=== PATIENT | female | born 1995 | race Two or more races ===

== ENCOUNTER 2017-04-13 00:39 | Emergency (ER) | payer BC, OTHER, SELFPAY ==
[~2017-04-13] VITALS: Ht 160 cm; Wt 122.6 kg
[2017-04-13] MEDS ORDERED: SODIUM CHLORIDE 0.9% 1,000ML IVBOLUS ONE ×2 (01:30→04:00)
[2017-04-13] MEDS ORDERED: MORPHINE SULFATE 4 MG/ML, 1ML IVPush PRN (01:30)
[2017-04-13] MEDS ORDERED: PROMETHAZINE 25 MG/ML, 1ML IM ONE (01:30)
[2017-04-13] MEDS ORDERED: SODIUM CHLORIDE FLUSH 10ML SYR IVF ONE (01:30)
[2017-04-13] MEDS ORDERED: ONDANSETRON 2MG/ML, 2ML IVPush ONE (01:30)
[2017-04-13 01:51] LABS: BASOPHILS % (AUTO) 0 % (0-1); EOSINOPHILS # (AUTO) 0.16 x10^3/uL (0-0.4); EOSINOPHILS % (AUTO) 1 % (1-7); LYMPHOCYTES # (AUTO) 0.47 x10^3/uL (1-3.4); LYMPHOCYTES % (AUTO) 4 % (22-44); MD NO; MEAN CORPUSCULAR HGB CONC 34.5 g/dL (32.4-35.8); MEAN CORPUSCULAR VOLUME 89.9 fL (80-100); MEAN PLATELET VOLUME 10.7 fL (7.4-10.4); MONOCYTES # (AUTO) 0.53 x10^3/uL (0.2-0.8); MONOCYTES % (AUTO) 5 % (2-9); NEUTROPHILS # (AUTO) 10.24 x10^3/uL (1.8-6.8); NEUTROPHILS % (AUTO) 90 % (42-75); PLATELET COUNT 184 x10^3/uL (130-400); RED BLOOD COUNT 5.08 x10^6/uL (3.82-5.3); RED CELL DISTRIBUTION WIDTH 12.9 % (9.6-15.2)
[2017-04-13 02:01] LABS: ALANINE AMINOTRANSFERASE 108 U/L (12-78); ALBUMIN 3.9 g/dL (3.4-5.0); ANION GAP 7 mmol/L (5-15); CALCIUM 8.8 mg/dL (8.5-10.1); CHLORIDE 102 mmol/L (98-107); CREATININE 0.72 mg/dL (0.55-1.02)
[2017-04-13 02:05] LABS: ALKALINE PHOSPHATASE 117 U/L (45-117); BILIRUBIN,TOTAL 1.8 mg/dL (0.2-1.0)
[2017-04-13] MEDS ORDERED: PROMETHAZINE 25 MG/ML, 1ML ONE (02:12)
[2017-04-13] MEDS ORDERED: ONDANSETRON 2MG/ML, 2ML ONE (02:12)
[2017-04-13] MEDS ORDERED: MORPHINE SULFATE 4 MG/ML, 1ML ONE (02:12)
[2017-04-13 02:13] LABS: CULTURE INDICATED? YES; MICROSCOPIC INDICATED
[2017-04-13] MEDS ORDERED: OMNIPAQUE 350 MG/ML, 100ML BOTTLE ONE (02:43)
[2017-04-13] MEDS ORDERED: ACETAMINOPHEN 325 MG TABLET ONE (03:45)
[2017-04-13] MEDS ORDERED: ACETAMINOPHEN 325 MG TABLET PO ONE (04:00)
[2017-04-13 04:37] VITALS: BP 99/66
== END 2017-04-13 04:40 | disposition home or self-care (01) ==
LOC: ED 03:44
DX: K29.00 Acute gastritis without bleeding (principal); R10.31 Right lower quadrant pain; R10.13 Epigastric pain; Z88.0 Allergy status to penicillin
CPT/HCPCS: 36415; 74177; 80053; 81001; 83690; 84703; 85025; 87086; 87147; 96361; 96372; 96374; 99285; J2405; J2550; J7030; Q9967